=== PATIENT | female | born 1965 | race Caucasian/White ===

== ENCOUNTER 2023-02-20 07:21 | Observation (INO) | payer BC ==
[2023-02-20] MEDS ORDERED: SODIUM CHLORIDE 0.9% 500 ML INFUS.BAG IV ONE (07:38)
[2023-02-20] MEDS ORDERED: ONDANSETRON 4 MG/2 ML VIAL IVPUSH ONE (07:38)
[2023-02-20] MEDS ORDERED: MECLIZINE HCL 25 MG TABLET (FP) PO ONE (07:45)
[2023-02-20] MEDS ORDERED: MECLIZINE HCL 25 MG TABLET (FP) ONE (08:02)
[2023-02-20] MEDS ORDERED: ONDANSETRON 4 MG/2 ML VIAL ONE (08:02)
[2023-02-20 08:29] LABS: HEMATOCRIT 40.1 % (32.4-45.2); HEMOGLOBIN 13.7 G/dL (10.7-15.3); MCH 31.2 pg (25.7-33.7); MCHC 34.2 g/dl (32.0-36.0); MEAN CELL VOLUME 91.2 fl (80-96); MEAN PLT VOLUME 7.5 fl (7.5-11.1); PLATELET COUNT 276.2 10^3/uL (134-434); RDW 14.2 % (11.6-15.6); WHITE BLOOD COUNT 7.7 10^3/uL (4.0-10.8)
[2023-02-20 08:35] LABS: PLATELET ESTIMATE ADEQUATE
[2023-02-20 08:36] LABS: ALBUMIN 4.3 g/dl (3.4-5.0); BILIRUBIN,TOTAL 1.4 mg/dl (0.2-1); CALCIUM 9.6 mg/dl (8.5-10); POTASSIUM 4.2 mmol/L (3.5-5.1)
[2023-02-20] MEDS ORDERED: MECLIZINE HCL 12.5 MG TABLET PO PRN (11:23)
[2023-02-20] MEDS ORDERED: ONDANSETRON 4 MG/2 ML VIAL IVPUSH PRN (11:23)
[2023-02-20 16:14] VITALS: BMI 32.5
[2023-02-20] MEDS: FLUTICASONE PROP 0.05% 16 GM NASAL SPRAY NS SCH ×2 (17:32→21:26)
[2023-02-20] MEDS ORDERED: LABETALOL HCL 200 MG TABLET (FP) PO SCH ×2 (18:23→22:00)
[2023-02-20] MEDS ORDERED: LABETALOL HCL 200 MG TABLET (FP) PO ONE (18:54)
[2023-02-20] MEDS: ATORVASTATIN CA 20 MG TABLET (FP) PO SCH (21:22)
[2023-02-21 08:42] LABS: BILIRUBIN,TOTAL 1.7 mg/dl (0.2-1); CALCIUM 9.3 mg/dl (8.5-10); MAGNESIUM 1.9 mg/dL (1.8-2.4); PHOSPHOROUS 3.5 mg/dl (2.5-4.9); POTASSIUM 3.9 mmol/L (3.5-5.1); TOT PROT 6.8 g/dl (6.4-8.2)
[2023-02-21 09:56] LABS: BASO % 0.8 % (0-2.0); EOS % 1.2 % (0-4.5); HEMATOCRIT 38.4 % (32.4-45.2); HEMOGLOBIN 13.7 GM/dL (10.7-15.3); LYMPH % 18.9 % (8-40); MCH 31.2 pg (25.7-33.7); MCHC 35.7 g/dl (32.0-36.0); MEAN CELL VOLUME 87.2 fl (80-96); MEAN PLT VOLUME 7.4 fl (7.5-11.1); MONO % 7.5 % (3.8-10.2); NEUT % 71.6 % (42.8-82.8); PLATELET COUNT 290 10^3/uL (134-434); RDW 14.3 % (11.6-15.6); WHITE BLOOD COUNT 6.9 K/mm3 (4.0-10.0)
[2023-02-21] MEDS ORDERED: diazePAM 2 MG TABLET PO ONE (10:00)
[2023-02-21] MEDS: LORATADINE 10 MG TABLET PO SCH (10:23)
[2023-02-21] MEDS: DULoxetine HCL 30 MG CAPSULE.DR PO SCH (10:23)
[2023-02-21] MEDS: LABETALOL HCL 200 MG TABLET (FP) PO SCH ×2 (10:23→22:50)
[2023-02-21] MEDS: FLUTICASONE PROP 0.05% 16 GM NASAL SPRAY NS SCH ×2 (10:24→22:00)
[2023-02-21] MEDS ORDERED: amLODIPine BESYLATE 5 MG TABLET (FP) PO ONE (12:52)
[2023-02-21] MEDS: CHOLECALCIFEROL (VIT D3) 1,000 UNIT (25 MCG) TABLET PO SCH (18:12)
[2023-02-21] MEDS: ATORVASTATIN CA 20 MG TABLET (FP) PO SCH (22:50)
[2023-02-22 01:58] VITALS: RESP 18
[2023-02-22 08:27] LABS: CALCIUM 9.4 mg/dl (8.5-10); CREATININE 0.9 mg/dl (0.55-1.3); POTASSIUM 3.6 mmol/L (3.5-5.1)
[2023-02-22] MEDS: DULoxetine HCL 30 MG CAPSULE.DR PO SCH (09:01)
[2023-02-22] MEDS: LABETALOL HCL 200 MG TABLET (FP) PO SCH (09:01)
[2023-02-22] MEDS: LORATADINE 10 MG TABLET PO SCH (09:01)
[2023-02-22] MEDS: CHOLECALCIFEROL (VIT D3) 1,000 UNIT (25 MCG) TABLET PO SCH (09:01)
[2023-02-22] MEDS: FLUTICASONE PROP 0.05% 16 GM NASAL SPRAY NS SCH (09:02)
[2023-02-22 09:51] LABS: BASO % 0.7 % (0-2.0); EOS % 1.8 % (0-4.5); HEMATOCRIT 38.4 % (32.4-45.2); HEMOGLOBIN 13.5 GM/dL (10.7-15.3); LYMPH % 17.9 % (8-40); MCH 30.5 pg (25.7-33.7); MEAN PLT VOLUME 6.9 fl (7.5-11.1); MONO % 8.1 % (3.8-10.2); NEUT % 71.5 % (42.8-82.8); PLATELET COUNT 301 10^3/uL (134-434); RBC 4.42 M/mm3 (3.60-5.2)
[2023-02-22] MEDS ORDERED: amLODIPine BESYLATE 10 MG TABLET (FP) PO SCH (10:00)
[2023-02-22 13:18] VITALS: BP 151/95; PULSE 72; TEMP 98.9
== END 2023-02-22 16:08 | disposition home or self-care (01) ==
LOC: FER 07:21 → FM/S 11:42 → INTOOBSV 11:42 → FM/S 13:41
PROVIDERS: ADMIT Internal Medicine; ATTEND Internal Medicine
PROC: 3E033GC Introduction of Other Therapeutic Substance into Peripheral Vein, Percutaneous Approach (ICD-10-PCS; principal; 2023-02-20)
DX: R42 Dizziness and giddiness (principal); I10 Essential (primary) hypertension; E05.90 Thyrotoxicosis, unspecified without thyrotoxic crisis or storm; Z88.1 Allergy status to other antibiotic agents
CPT/HCPCS: 0241U-QW; 36415; 70450-TC; 70551-TC; 71045-TC-FY; 80048; 80053; 82306; 82607; 82728; 82746; 83540; 83550; 83735; 84100; 84443; 84484; 85025; 85027; 93005; 97116-GP; 97161-GP; 99285-25; G0378